=== PATIENT | female | born 1985 | race Caucasian/White ===

== ENCOUNTER 2017-01-26 12:59 | Outpatient (CLI) | payer OTHER ==
--- NOTE | 2017-01-26 15:04 | DIAGNOSTIC IMAGING REPORT ---
PROCEDURE: US 1ST TRIMESTER INDICATION: AMENORRHEA TECHNIQUE: Cope scale, color, and spectral Doppler transabdominal sonographic images of the first trimester gravid uterus were obtained. COMPARISON: None. FINDINGS: TRANSABDOMINAL SCANS: The gravid uterus is vertically oriented in position and contains a fundal gestational sac with a moderate decidual response. No perigestational hemorrhage. The cervix is closed. A single pole with an average crown-rump length of 24.3 mm is present. There is detectable cardiac activity in the fetus in a rate of 169 beats per minute. A yolk sac and partially fused amnion were visible. The right maternal ovary was not seen. No suspicious right adnexal mass. A 2.5 cm follicles present on the left ovary, likely a corpus luteum. No free pelvic fluid. IMPRESSION: 1. Single living intrauterine with gestational age of 9 weeks 1 day and estimated due date of 08/30/2017. 2. Closed cervix and no perigestational hemorrhage.
== END 2017-01-26 23:00 ==
LOC: US SRH 12:59
DX: N91.2 Amenorrhea, unspecified (principal); Z33.1 Pregnant state, incidental
CPT/HCPCS: 90004; 90074; 90078; 90261; 90364; 90469; 90599; 90600; 90605; 90606; 90851; 91227; 91228; 92863; 98480; 99777

== ENCOUNTER 2017-04-14 18:04 | Outpatient (CLI) | payer OTHER ==
--- NOTE | 2017-04-14 19:57 | DIAGNOSTIC IMAGING REPORT ---
PROCEDURE: US OB DETAILED ANATOMIC INDICATION: ANATOMY TECHNIQUE: Cope scale, color, and spectral Doppler images of the second trimester gravid uterus were obtained. COMPARISON: OB ultrasound 01/26/2017. FINDINGS: Single intrauterine with variable presentation, posterior placenta without previa and heart rate 149 bpm. Amniotic fluid is unremarkable. Normal closed cervix measures 3.5 cm. The anatomic survey, including the intracranial anatomy, facial structures, nuchal region, spine, ukru-ugbttzi-[id number] view, outflow tracts, chest and diaphragm, stomach and abdomen, three-vessel cord and cord insertion, bladder and pelvis, kidneys and extremities, is within normal limits. BPD 4.8 cm, 20 weeks 4 days; head circumference 18.1 cm, 20 weeks 4 days; abdominal circumference 17.4 cm, 22 weeks 2 days; femur length 3.4 cm, 20 weeks 5 days. Composite age 21 weeks. HAI 08/25/2017. IMPRESSION: 1. Single live intrauterine , 21 weeks 2. HAI 08/25/2017, 5 days accelerated growth. 3. anatomic survey within normal limits.
--- NOTE | 2017-04-14 19:57 | DIAGNOSTIC IMAGING REPORT ---
PROCEDURE: US OB DETAILED ANATOMIC INDICATION: ANATOMY TECHNIQUE: Cope scale, color, and spectral Doppler images of the second trimester gravid uterus were obtained. COMPARISON: OB ultrasound 01/26/2017. FINDINGS: Single intrauterine with variable presentation, posterior placenta without previa and heart rate 149 bpm. Amniotic fluid is unremarkable. Normal closed cervix measures 3.5 cm. The anatomic survey, including the intracranial anatomy, facial structures, nuchal region, spine, uxie-limkkhn-dkfzy view, outflow tracts, chest and diaphragm, stomach and abdomen, three-vessel cord and cord insertion, bladder and pelvis, kidneys and extremities, is within normal limits. BPD 4.8 cm, 20 weeks 4 days; head circumference 18.1 cm, 20 weeks 4 days; abdominal circumference 17.4 cm, 22 weeks 2 days; femur length 3.4 cm, 20 weeks 5 days. Composite age 21 weeks. HAI 08/25/2017. IMPRESSION: 1. Single live intrauterine , 21 weeks 2. HAI 08/25/2017, 5 days accelerated growth. 3. anatomic survey within normal limits.
== END 2017-04-14 23:00 ==
LOC: US SRH 18:04
DX: Z34.92 Encounter for supervision of normal pregnancy, unspecified, second trimester (principal); Z3A.21 21 weeks gestation of pregnancy